=== PATIENT | male | born 2000 | race Caucasian/White ===

== ENCOUNTER 2023-09-10 05:50 | Day surgery (SDC) | payer OTHER ==
[~2023-09-10] VITALS: Ht 167.6 cm; Wt 61.6 kg
[2023-09-10] MEDS: LR 1,000 ML IV SCH (06:30)
[2023-09-10] MEDS ORDERED: LIDOCAINE 1% SDV 5ML VIAL SC PRN (06:30)
[2023-09-10] MEDS ORDERED: ROCURONIUM BROMIDE 50MG/5ML VIAL As Ordered ONE (07:00)
[2023-09-10] MEDS ORDERED: SUGAMMADEX SODIUM 500 MG/5 ML VIAL (BRIDION) As Ordered ONE (07:00)
[2023-09-10] MEDS ORDERED: propofoL 200 MG/20 ML VIAL As Ordered ONE (07:00)
[2023-09-10] MEDS ORDERED: ONDANSETRON 4MG 2ML VIAL As Ordered ONE (07:01)
[2023-09-10] MEDS ORDERED: ACETAMINOPHEN 1000MG 100ML IV BAG As Ordered ONE (07:01)
[2023-09-10] MEDS ORDERED: dexmedeTOMIDine (4MCG/ML)200MCG/50ML BTL (PRECEDEX) As Ordered ONE (07:01)
[2023-09-10] MEDS: VANCOMYCIN 1000MG/20ML VIAL As Ordered ONE (07:05)
[2023-09-10] MEDS ORDERED: ROPIvacaine 0.5% 30ML VIAL PN ONE (07:10)
[2023-09-10] MEDS ORDERED: LIDOCAINE 1% SDV 5ML VIAL PN ONE (07:10)
[2023-09-10] MEDS ORDERED: fentaNYL 100 MCG/2 ML INJECTION IV PRN ×2 (07:10→10:15)
[2023-09-10] MEDS: MIDAZOLAM INJ 2MG/2ML VIAL IV PRN (07:23)
[2023-09-10] MEDS: ceFAZolin 2 GM/D5W 50 ML IV BAG As Ordered ONE (07:37)
[2023-09-10] MEDS: ceFAZolin SOD 2 GM in IV 1 EA IV ONE (07:40)
[2023-09-10] MEDS ORDERED: fentaNYL 100 MCG/2 ML INJECTION As Ordered ONE (07:42)
[2023-09-10] MEDS: TRANEXAMIC ACID 100 MG/ML 10ML VIAL As Ordered ONE (07:45)
[2023-09-10] MEDS: EPINEPHrine 1MG/ML INJ 30ML MD-VIAL As Ordered ONE (09:19)
[2023-09-10] MEDS ORDERED: ONDANSETRON 4MG 2ML VIAL IV PRN (10:15)
[2023-09-10] MEDS ORDERED: oxyCODONE 5MG TAB PO PRN (10:15)
[2023-09-10] MEDS ORDERED: LR 1,000 ML IV SCH (10:15)
[2023-09-10] MEDS ORDERED: HYDROMORPHONE HCL 0.5 MG/ 0.5 ML SYRINGE IV PRN (10:15)
[2023-09-10 12:06] VITALS: BP 147/89; TEMP 97.9; O2SAT 100
== END 2023-09-10 12:26 | disposition home or self-care (01) ==
LOC: M SDC 05:50
PROVIDERS: ATTEND Orthopaedic Surgery
DX: M75.42 Impingement syndrome of left shoulder (principal); M19.012 Primary osteoarthritis, left shoulder; M75.52 Bursitis of left shoulder
CPT/HCPCS: 29824; 29826; 73020; J0131; J0171; J0690; J1100; J2250; J2405; J3010; J3370